=== PATIENT | female | born 1945 | race African-American/Black ===

== ENCOUNTER 2019-03-27 14:44 | Inpatient (IN) ==
[2019-03-27 16:15] LABS: Basophils % 0.4 %; Eosinophils # 0.3 K/mcL (0.0-0.6); Eosinophils % 3.9 %; Hematocrit 39.6 % (35.3-44.9); Hemoglobin 12.2 g/dL (11.5-15.4); Immature Granulocytes % 0.4 % (0-4); Lymphocytes # 1.9 K/mcL (0.6-4.6); Lymphocytes % 24.8 %; Mean Corpuscular HGB Conc 30.8 g/dL (31.6-35.5); Mean Corpuscular Hemoglobin 26.3 pg (28.0-33.3); Mean Corpuscular Volume 85.3 fL (83.0-100.0); Mean Platelet Volume 10.4 fL (9.4-12.4); Monocytes # 0.7 K/mcL (0.0-1.3); Monocytes % 9.5 %; Neutrophils # 4.6 K/mcL (1.6-8.9); Platelet Count 199 K/mcL (140-400); Red Blood Count 4.64 M/mcL (3.82-4.97); Red Cell Distribution Width 15.9 % (11.5-14.5)
--- NOTE | 2019-03-27 16:28 | Emergency Department Note ---
Disposition Clinical Impression: Cellulitis Qualifiers: Site of cellulitis: extremity Site of cellulitis of extremity: lower extremity Laterality: left Qualified Code(s): L03.116 - Cellulitis of left lower limb Disposition: Admitted As Inpatient Condition: Undetermined Time of Disposition: 22:28 General Adult HPI - General Chief complaint: ED Skin/Abscess/Foreign Body Stated complaint: cellulitis Time Seen by Provider: 03/27/19 16:16 Source: patient Limitations: no limitations - History of Present Illness Pain Scale: 6 - Related Data Home Medications Medication Instructions Recorded Confirmed Albuterol Sulfate [Albuterol 1 - 2 puff IH Q4-6H PRN 04/25/18 04/25/18 Inhaler] Atorvastatin [Lipitor] 40 mg PO DAILY 04/25/18 04/25/18 Furosemide [Lasix] 80 mg PO BID 04/25/18 04/25/18 Glimepiride [Amaryl] 1 mg PO HS 04/25/18 04/25/18 Glimepiride [Amaryl] 1.5 mg PO QAM 04/25/18 04/25/18 Isosorbide MONOnitrate (24 HR) 60 mg PO DAILY 04/25/18 04/25/18 [Imdur] Losartan Potassium [Cozaar] 100 mg PO DAILY 04/25/18 04/25/18 Metoprolol [Lopressor] 12.5 mg PO BID 04/25/18 04/25/18 Nitroglycerin [Nitrostat] 0.4 mg SL Q5M PRN 04/25/18 04/25/18 Allergies Allergy/AdvReac Type Severity Reaction Status Date / Time No Known Allergies Allergy Verified 04/25/18 09:00 Past Medical History - Past Medical History Medical history: Reports: CHF, diabetes, hyperlipidemia, hypertension, other Surgical history: Reports: other Psychiatric history: Reports: no psych history - Social History Smoking Status: Never smoker Smokeless Tobacco Status: No Alcohol use: Reports: none Drug use: Reports: none Physical Exam - General Limitations: no limitations General appearance: alert, in no apparent distress Course Vital Signs Temperature 98.2 F 03/27/19 14:49 Pulse Rate 62 03/27/19 14:49 Respiratory Rate 16 03/27/19 14:49 Blood Pressure 114/64 03/27/19 14:49 O2 Sat by Pulse Oximetry 94 03/27/19 14:49 Temperature 98.4 F 03/27/19 20:28 Pulse Rate 63 03/27/19 20:28 Respiratory Rate 15 03/27/19 20:28 Blood Pressure 127/70 03/27/19 20:28 O2 Sat by Pulse Oximetry 93 03/27/19 20:28 Oxygen Delivery Oxygen Delivery Room Air Medical Decision Making - Lab Data Result diagrams: 03/27/19 19:56 03/27/19 14:00 Lab Results 03/27/19 03/27/19 03/27/19 Range/Units 14:00 14:00 14:00 WBC 7.5 (4.3-11.1) K/mcL RBC 4.64 (3.82-4.97) M/mcL Hgb 12.2 (11.5-15.4) g/dL Hct 39.6 (35.3-44.9) % MCV 85.3 (83.0-100.0) fL MCH 26.3 L (28.0-33.3) pg MCHC 30.8 L (31.6-35.5) g/dL RDW 15.9 H (11.5-14.5) % Plt Count 199 (140-400) K/mcL MPV 10.4 (9.4-12.4) fL Immature Gran % 0.4 (0-4) % Seg Neutrophils % 61.0 % Lymphocytes % 24.8 % Monocytes % 9.5 % Eosinophils % 3.9 % Basophils % 0.4 % Neutrophils # 4.6 (1.6-8.9) K/mcL Lymphocytes # 1.9 (0.6-4.6) K/mcL Monocytes # 0.7 (0.0-1.3) K/mcL Eosinophils # 0.3 (0.0-0.6) K/mcL Basophils # 0.0 (0.0-0.2) K/mcL Sodium 142 (136-145) mEq/L Potassium 3.5 (3.5-5.1) mEq/L Chloride 105 (98-107) mEq/L Carbon Dioxide 29 (23-29) mEq/L BUN 22 (8-23) mg/dL Creatinine 1.00 (0.60-1.20) mg/dL Est GFR ( Amer) > 60 (> 60) Est GFR (Non-Af Amer) 54 L (> 60) BUN/Creatinine Ratio 22 (6-26) Glucose 104 (70-105) mg/dL Calculated Osmolality 298 (280-300) Lactic Acid 1.2 (0.5-2.2) mmol/L Calcium 8.7 (8.6-10.3) mg/dL Urine Color (Yellow) Urine Clarity (Clear) Urine pH (5.0-8.0) pH Units Ur Specific [place] (1.010-1.025) Urine Protein (Neg-Trace) mg/dL Urine Glucose (UA) (Normal) mg/dL Urine Ketones (Negative) mg/dL Urine Blood (Negative) Urine Nitrite (Negative) Urine Bilirubin (Negative) Urine Urobilinogen (Normal) mg/dL Ur Leukocyte Esterase (Negative) Urine Microscopic RBC (0-3) per hpf Urine Microscopic WBC (0-3) per hpf Ur Squamous Epith Cells (None-Few) per lpf Urine Bacteria (None-Few) per hpf Hyaline Casts (None-Few) per lpf 03/27/19 Range/Units 16:17 WBC (4.3-11.1) K/mcL RBC (3.82-4.97) M/mcL Hgb (11.5-15.4) g/dL Hct (35.3-44.9) % MCV (83.0-100.0) fL MCH (28.0-33.3) pg MCHC (31.6-35.5) g/dL RDW (11.5-14.5) % Plt Count (140-400) K/mcL MPV (9.4-12.4) fL Immature Gran % (0-4) % Seg Neutrophils % % Lymphocytes % % Monocytes % % Eosinophils % % Basophils % % Neutrophils # (1.6-8.9) K/mcL Lymphocytes # (0.6-4.6) K/mcL Monocytes # (0.0-1.3) K/mcL Eosinophils # (0.0-0.6) K/mcL Basophils # (0.0-0.2) K/mcL Sodium (136-145) mEq/L Potassium (3.5-5.1) mEq/L Chloride (98-107) mEq/L Carbon Dioxide (23-29) mEq/L BUN (8-23) mg/dL Creatinine (0.60-1.20) mg/dL Est GFR ( Amer) (> 60) Est GFR (Non-Af Amer) (> 60) BUN/Creatinine Ratio (6-26) Glucose (70-105) mg/dL Calculated Osmolality (280-300) Lactic Acid (0.5-2.2) mmol/L Calcium (8.6-10.3) mg/dL Urine Color Yellow (Yellow) Urine Clarity Clear (Clear) Urine pH 5.5 (5.0-8.0) pH Units Ur Specific [place] 1.018 (1.010-1.025) Urine Protein 100 H (Neg-Trace) mg/dL Urine Glucose (UA) Normal (Normal) mg/dL Urine Ketones Negative (Negative) mg/dL Urine Blood Negative (Negative) Urine Nitrite Negative (Negative) Urine Bilirubin Negative (Negative) Urine Urobilinogen Normal (Normal) mg/dL Ur Leukocyte Esterase Negative (Negative) Urine Microscopic RBC 0-3 (0-3) per hpf Urine Microscopic WBC 0-3 (0-3) per hpf Ur Squamous Epith Cells Few (None-Few) per lpf Urine Bacteria None Seen (None-Few) per hpf Hyaline Casts None Seen (None-Few) per lpf Attestation Statement - Attestation Attestation: I reviewed the residents documentation and agree with the residents assessment and plan of care. I have personally had face to face time with the patient. (Brief History, Brief Exam, and MDM) I personally supervised and was present for the whalen/critical portions of the following procedures completed by the resident: (add procedures performed here). [id number] time provided Patient arrives complaining of a breach of skin to her distal left lower extremity. This initially occurred as an abrasion several weeks ago but it is not healing. She has a known history of chronic lower extremity peripheral edema and diabetes. Patient does have symmetric swelling to her lower extremity bilaterally with superficial ulceration of her skin to the left lateral lower leg. She does not appear systemically ill or toxic
[2019-03-27] MEDS ORDERED: Clindamycin 600 MG/50 ML 600 MG/50 ML IV.SOLN IVPB ONE (16:37)
[2019-03-27 16:40] LABS: Bilirubin,Urine Negative (Negative); Blood,Urine Negative (Negative); Clarity,Urine Clear (Clear); Color,Urine Yellow (Yellow); Glucose,Urine (UA) Normal (Normal); Ketones,Urine Negative (Negative); Leukocyte Esterase,Urine Negative (Negative); Nitrite,Urine Negative (Negative); PH,Urine 5.5 pH Units (5.0-8.0); Protein,Urine 100 mg/dL (Neg-Trace); Specific Gravity,Urine 1.018 (1.010-1.025); Urobilinogen,Urine Normal (Normal)
[2019-03-27 16:41] LABS: BUN/Creatinine Ratio 22 (6-26); Blood Urea Nitrogen 22 mg/dL (8-23); Calcium 8.7 mg/dL (8.6-10.3); Carbon Dioxide 29 mEq/L (23-29); Chloride 105 mEq/L (98-107); Glucose 104 mg/dL (70-105); Osmolality,Calculated 298 (280-300); Potassium 3.5 mEq/L (3.5-5.1); Sodium 142 mEq/L (136-145); eGFR For Non-African Americans 54 (> 60)
[2019-03-27 16:42] LABS: Bacteria,Urine None Seen per hpf (None-Few); Hyaline Casts,Urine None Seen per lpf (None-Few); RBC,Urine 0-3 per hpf (0-3); Squamous Epithelial Cell,Urine Few per lpf (None-Few); WBC,Urine 0-3 per hpf (0-3)
--- NOTE | 2019-03-27 16:55 | Emergency Department Note ---
Disposition Clinical Impression: Cellulitis Qualifiers: Site of cellulitis: extremity Site of cellulitis of extremity: lower extremity Laterality: left Qualified Code(s): L03.116 - Cellulitis of left lower limb Disposition: Admitted As Inpatient Condition: Undetermined Referrals: Jeff Maloney DO [Primary Care Provider] - Forms: ED Satisfaction Letter Time of Disposition: 17:37 Skin/Abscess/FB HPI Chief complaint: ED Skin/Abscess/Foreign Body Stated complaint: cellulitis Time Seen by Provider: 03/27/19 16:16 Source: patient Mode of arrival: ambulatory Limitations: no limitations Nursing Notes Reviewed: Yes Vital Signs Reviewed: Yes HPI Narrative: 73-year-old female with history of diabetes, hypertension, COPD arrives to the emergency Department complaint of abrasion to left lower extremity that occurred roughly 4 weeks ago. The patient was treated with outpatient antibiotics, initially Bactrim and Keflex but has continued to experience symptoms so roughly 7 days ago the patient started ciprofloxacin is been taking medication as prescribed but states that she is continued to experience worsening erythema and swelling of the left lower extremity in the lateral aspect of the anterior aspect of the zayas. The patient was sent here by PCP instructed to be admitted for IV anabiotic's for failed outpatient therapy. Patient denies any fevers, chills or any other acute complaints at this time. She has soft compartments, no lymphangitis and no radiation proximally from the abrasion site. Good pulses and capillary refill less than 2 seconds. Home Medications Medication Instructions Recorded Confirmed Albuterol Sulfate [Albuterol 1 - 2 puff IH Q4-6H PRN 04/25/18 04/25/18 Inhaler] Atorvastatin [Lipitor] 40 mg PO DAILY 04/25/18 04/25/18 Furosemide [Lasix] 80 mg PO BID 04/25/18 04/25/18 Glimepiride [Amaryl] 1 mg PO HS 04/25/18 04/25/18 Glimepiride [Amaryl] 1.5 mg PO QAM 04/25/18 04/25/18 Isosorbide MONOnitrate (24 HR) 60 mg PO DAILY 04/25/18 04/25/18 [Imdur] Losartan Potassium [Cozaar] 100 mg PO DAILY 04/25/18 04/25/18 Metoprolol [Lopressor] 12.5 mg PO BID 04/25/18 04/25/18 Nitroglycerin [Nitrostat] 0.4 mg SL Q5M PRN 04/25/18 04/25/18 Allergies Allergy/AdvReac Type Severity Reaction Status Date / Time No Known Allergies Allergy Verified 04/25/18 09:00 All systems ED: reviewed and negative except as stated. Constitutional: Reports: weakness. Denies: fever, chills ENT ED: Denies: dysphagia Cardiovascular: Denies: chest pain Respiratory: Denies: dyspnea Gastrointestinal: Denies: abdominal pain, nausea, vomiting Genitourinary: Denies: urgency, dysuria Musculoskeletal: Denies: back pain Integumentary: Reports: abrasion, lesions Past Medical History - Past Medical History Attestation: Yes The following information was validated with the patient. Source: old records reviewed Medical history: Reports: CHF, diabetes, hyperlipidemia, hypertension, other Surgical history: Reports: other Psychiatric history: Reports: no psych history - Social History Smoking Status: Never smoker Smokeless Tobacco Status: No Alcohol use: Reports: none Drug use: Reports: none Physical Exam - General Limitations: no limitations General appearance: alert, in no apparent distress - Head Head exam: atraumatic, normocephalic, normal inspection - Eye Eye exam: Present: normal appearance - ENT ENT exam: normal exam, normal oropharynx, mucous membranes moist - Neck Neck exam: Present: normal inspection, full ROM, trachea midline - Chest Chest inspection: Present: normal inspection, symmetric chest wall rise - Respiratory Respiratory exam: Present: normal lung sounds bilaterally - Cardiovascular Cardiovascular exam: Present: regular rate, normal rhythm, normal heart sounds - Abdominal Exam Abdominal exam: Present: soft, Non-Tender. Absent: tenderness, distention, gua rding, rebound, rigidity - Extremities Exam Extremities exam: Present: full ROM, tenderness (Left lateral aspect of the anterior zayas.), normal capillary refill, pedal edema (Baseline nonpitting bilateral lower extremities.), other (The patient has a 2 cm diameter abrasion to the left lateral aspect of the zayas. Running erythema and tenderness noted. It is hot to the touch. No definable or drainable abscess noted.) Course Vital Signs Temperature 98.2 F 03/27/19 14:49 Pulse Rate 62 03/27/19 14:49 Respiratory Rate 16 03/27/19 14:49 Blood Pressure 114/64 03/27/19 14:49 O2 Sat by Pulse Oximetry 94 03/27/19 14:49 Temperature 98.2 F 03/27/19 14:49 Pulse Rate 62 03/27/19 14:49 Respiratory Rate 16 03/27/19 14:49 Blood Pressure 114/64 03/27/19 14:49 O2 Sat by Pulse Oximetry 94 03/27/19 14:49 Oxygen Delivery Oxygen Delivery Room Air Skin/Abscess/Foreign Body - MDM Narrative Medical decision making narrative: Patient's evaluation demonstrates findings of cellulitis. Lab work here is f airly unremarkable. We will consider this failed outpatient therapy and so the patient IV Clinda Mysoline admit the patient to hospital time. Accepted by . D - Lab Data Lab results reviewed: Yes I reviewed the patient's lab results. Result diagrams: 03/27/19 14:00 03/27/19 14:00 Lab Results 03/27/19 03/27/19 03/27/19 Range/Units 14:00 14:00 14:00 WBC 7.5 (4.3-11.1) K/mcL RBC 4.64 (3.82-4.97) M/mcL Hgb 12.2 (11.5-15.4) g/dL Hct 39.6 (35.3-44.9) % MCV 85.3 (83.0-100.0) fL MCH 26.3 L (28.0-33.3) pg MCHC 30.8 L (31.6-35.5) g/dL RDW 15.9 H (11.5-14.5) % Plt Count 199 (140-400) K/mcL MPV 10.4 (9.4-12.4) fL Immature Gran % 0.4 (0-4) % Seg Neutrophils % 61.0 % Lymphocytes % 24.8 % Monocytes % 9.5 % Eosinophils % 3.9 % Basophils % 0.4 % Neutrophils # 4.6 (1.6-8.9) K/mcL Lymphocytes # 1.9 (0.6-4.6) K/mcL Monocytes # 0.7 (0.0-1.3) K/mcL Eosinophils # 0.3 (0.0-0.6) K/mcL Basophils # 0.0 (0.0-0.2) K/mcL Sodium 142 (136-145) mEq/L Potassium 3.5 (3.5-5.1) mEq/L Chloride 105 (98-107) mEq/L Carbon Dioxide 29 (23-29) mEq/L BUN 22 (8-23) mg/dL Creatinine 1.00 (0.60-1.20) mg/dL Est GFR ( Amer) > 60 (> 60) Est GFR (Non-Af Amer) 54 L (> 60) BUN/Creatinine Ratio 22 (6-26) Glucose 104 (70-105) mg/dL Calculated Osmolality 298 (280-300) Lactic Acid 1.2 (0.5-2.2) mmol/L Calcium 8.7 (8.6-10.3) mg/dL Urine Color (Yellow) Urine Clarity (Clear) Urine pH (5.0-8.0) pH Units Ur Specific [place] (1.010-1.025) Urine Protein (Neg-Trace) mg/dL Urine Glucose (UA) (Normal) mg/dL Urine Ketones (Negative) mg/dL Urine Blood (Negative) Urine Nitrite (Negative) Urine Bilirubin (Negative) Urine Urobilinogen (Normal) mg/dL Ur Leukocyte Esterase (Negative) Urine Microscopic RBC (0-3) per hpf Urine Microscopic WBC (0-3) per hpf Ur Squamous Epith Cells (None-Few) per lpf Urine Bacteria (None-Few) per hpf Hyaline Casts (None-Few) per lpf 03/27/19 Range/Units 16:17 WBC (4.3-11.1) K/mcL RBC (3.82-4.97) M/mcL Hgb (11.5-15.4) g/dL Hct (35.3-44.9) % MCV (83.0-100.0) fL MCH (28.0-33.3) pg MCHC (31.6-35.5) g/dL RDW (11.5-14.5) % Plt Count (140-400) K/mcL MPV (9.4-12.4) fL Immature Gran % (0-4) % Seg Neutrophils % % Lymphocytes % % Monocytes % % Eosinophils % % Basophils % % Neutrophils # (1.6-8.9) K/mcL Lymphocytes # (0.6-4.6) K/mcL Monocytes # (0.0-1.3) K/mcL Eosinophils # (0.0-0.6) K/mcL Basophils # (0.0-0.2) K/mcL Sodium (136-145) mEq/L Potassium (3.5-5.1) mEq/L Chloride (98-107) mEq/L Carbon Dioxide (23-29) mEq/L BUN (8-23) mg/dL Creatinine (0.60-1.20) mg/dL Est GFR ( Amer) (> 60) Est GFR (Non-Af Amer) (> 60) BUN/Creatinine Ratio (6-26) Glucose (70-105) mg/dL Calculated Osmolality (280-300) Lactic Acid (0.5-2.2) mmol/L Calcium (8.6-10.3) mg/dL Urine Color Yellow (Yellow) Urine Clarity Clear (Clear) Urine pH 5.5 (5.0-8.0) pH Units Ur Specific [place] 1.018 (1.010-1.025) Urine Protein 100 H (Neg-Trace) mg/dL Urine Glucose (UA) Normal (Normal) mg/dL Urine Ketones Negative (Negative) mg/dL Urine Blood Negative (Negative) Urine Nitrite Negative (Negative) Urine Bilirubin Negative (Negative) Urine Urobilinogen Normal (Normal) mg/dL Ur Leukocyte Esterase Negative (Negative) Urine Microscopic RBC 0-3 (0-3) per hpf Urine Microscopic WBC 0-3 (0-3) per hpf Ur Squamous Epith Cells Few (None-Few) per lpf Urine Bacteria None Seen (None-Few) per hpf Hyaline Casts None Seen (None-Few) per lpf
[2019-03-27] MEDS ORDERED: *HR* Dextrose 50 % in Water (Syg) 50 ML SYRINGE IVP PRN ×2 (17:25→19:38)
[2019-03-27] MEDS ORDERED: Insulin Human Regular 100 UNIT in 0.9 % Sodium Chloride 100 ML IVC SCH (17:30)
--- NOTE | 2019-03-27 17:58 | Internal Med History&Physical ---
Date of Encounter: 03/27/19 Time of Encounter: 18:00 Internal Medicine - H&P: HPI Chief complaint: Cellulitis History of present illness: 73-year-old female with history of diabetes, hypertension, COPD who presented to the ER with arrives to the emergency abrasion to left lower extremity that occurred roughly 4 weeks ago. The patient was treated with Bactrim and Keflex as outpatient with no improvement. Her ABs regimen was changed to ciprofloxacin with no improvement. She denies any fevers, chills.X ray revealed no fracture, malalignment or osseous destruction. Advanced degenerative changes are present within the knee joint. There is moderate to severe diffuse soft tissue edema. She was admitted for further evaluation . Past Med Surg Social Fam HX - Past Medical History Medical history: CHF, diabetes, hyperlipidemia, hypertension, other Additional medical history: H/O COLON POLYPS. ACHILLES TENDON RUPTURE. PROTENURIA. OA. FIBROIDS. NEPHROTIC SYNDROME. SYNCOPE. 02/2014 [facility] - APICAL DEFECT. 02/2014 [facility] - NML, EF W/MILD MOD CAD (40% PROX LAD). CARDIOVASCULAR DISEASE. CAD. RHEUMATOID ARTHRITIS. ELEVATED D-DIMER. PULMON NAMRATA HTN. HYPOXIA. PROTENURIA. SHINGLES. OA. ELEVATED CPK. ATROPHIC GASTRITIS W/OUT MENTION OF HEMORRHAGE. 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 06/2010 [facility]OSS DENG. 02/2009 [facility]. S[facility], DR FRIAS. DIVERTICULOSIS/COLON - TUBLA ADENO MAL AND HYPERPLASTIC RECTAL POLYPS 04/14/15. 04/25/18 COLONOSCOPY @[facility] W/DR FRIAS - Social History Smoking Status: Never smoker Smokeless Tobacco Status: No Alcohol use: none Drug use: none Internal Medicine - H&P: Meds Albuterol Sulfate [Albuterol Inhaler] 1 - 2 puff IH Q4-6H PRN 04/25/18 [History] Atorvastatin [Lipitor] 40 mg PO DAILY 04/25/18 [History] Furosemide [Lasix] 80 mg PO QPM 04/25/18 [History] Glimepiride [Amaryl] 1.5 mg PO HS 04/25/18 [History] Glimepiride [Amaryl] 1.5 mg PO QAM 04/25/18 [History] Isosorbide MONOnitrate (24 HR) [Imdur] 60 mg PO DAILY 04/25/18 [History] Losartan Potassium [Cozaar] 100 mg PO DAILY 04/25/18 [History] Nitroglycerin [Nitrostat] 0.4 mg SL Q5M PRN 04/25/18 [History] Aspirin 81 mg PO DAILY 03/28/19 [History] Ciprofloxacin HCl [Cipro] 500 mg PO BID 03/28/19 [History] Furosemide [Lasix] 120 mg PO QAM 03/28/19 [History] Lactobacillus Acidophilus [Acidophilus] 1 cap PO BID 03/28/19 [History] Mupirocin [Bactroban Oint] 1 appl TP TID 03/28/19 [History] Vitamin D 2,000 unit PO DAILY 03/28/19 [History] Allergy/AdvReac Type Severity Reaction Status Date / Time No Known Allergies Allergy Verified 04/25/18 09:00 All Systems PM: A 10-system review of systems was performed and is negative for pertinent findings except as documented above in the HPI. - Constitutional Constitutional: no chills, no fever(s), no night sweats - EENT Eyes: no change in vision, no discharge, no pain, no photophobia Ears: no ear discharge, no ear pain, no tinnitus Nose, mouth and throat: no dysphagia, no nasal discharge, no neck pain, no sore throat - Cardiovascular Cardiovascular ROS IM: no chest pain, no diaphoresis, no dyspnea, no lightheadedness, no palpitations, no syncope - Respiratory Respiratory: no cough, no dyspnea, no wheezing, no excessive phlegm production - Gastrointestinal Gastrointestinal: no abdominal pain, no diarrhea, no hematemesis, no hematochezia, no melena, no nausea, no vomiting - Genitourinary Genitourinary: no change in urinary stream, no dysuria, no flank pain, no hematuria - Musculoskeletal Musculoskeletal ROS IM: no numbness, no tingling - Integumentary Integumentary IM: erythema, non-healing lesions, no unusual bruising - Neurological Neurological ROS: no confusion, no convulsions, no focal weakness, no numbness, no tingling, no tremor(s) - Hematologic/Lymphatic Hematologic/Lymphatic: no easy bruising - Constitutional Vitals: Temp Pulse Resp BP Pulse Ox 98.2 F 61 16 98/57 98 03/27/19 14:49 03/27/19 17:47 03/27/19 17:47 03/27/19 17:47 03/27/19 17:47 Exam: as below - Head Head exam: Present: atraumatic, normocephalic - Eye Eye exam: Present: PERRL, conjuntiva pink, sclera anicteric Pupils: Present: PERRL - Neck Neck exam general surgery: Present: supple, trachea midline. Absent: lymphadenopathy - Respiratory Respiratory exam: Present: CTAB. Absent: accessory muscle use, rales, rhonchi, wheezes - Cardiovascular Cardiovascular exam: Present: RRR, +S1, +S2. Absent: diastolic murmur, gallop, rubs, systolic murmur - GI/Abdominal GI/Abdominal exam: Present: normal bowel sounds, soft, no peritoneal signs. Absent: distended, tenderness - Extremities Exam Extremities exam: Present: normal capillary refill, warm, radial pulses palpable and symmetrical. Absent: calf tenderness, cyanotic, pedal edema - Neurological Exam Neurological exam: Present: CN II-XII intact, oriented X3, no focal deficits. Absent: pronater drift, facial droop, speech deficit - Skin Skin exam: Present: abrasion, dry, erythema Internal Med - H&P Results - Labs CBC & Chem 7: 03/29/19 02:26 03/29/19 02:26 Labs: Short CBC 03/27/19 Range/Units 14:00 WBC 7.5 (4.3-11.1) K/mcL Hgb 12.2 (11.5-15.4) g/dL Hct 39.6 (35.3-44.9) % Plt Count 199 (140-400) K/mcL Neutrophils # 4.6 (1.6-8.9) K/mcL BMP 03/27/19 14:00 Sodium 142 Potassium 3.5 Chloride 105 Carbon Dioxide 29 BUN 22 Creatinine 1.00 Glucose 104 Calcium 8.7 Urine 03/27/19 Range/Units 16:17 Urine Color Yellow (Yellow) Urine Clarity Clear (Clear) Urine pH 5.5 (5.0-8.0) pH Units Ur Specific [place] 1.018 (1.010-1.025) Urine Protein 100 H (Neg-Trace) mg/dL Urine Glucose (UA) Normal (Normal) mg/dL - Impressions ITS Impressions Tibia/Fibula X-Ray 03/27/19 17:10 IMPRESSION: No acute osseous abnormality. D/ / Félix Chua MD / Félix Chua MD Interpreting Provider: Félix Chua MD - Assessment and Plan (1) Cellulitis Current Visit: Yes Status: Acute Assessment and plan: We will start IV ABs was vancomycin and Zosyn Qualifiers: Site of cellulitis: extremity Site of cellulitis of extremity: lower extremity Laterality: left Qualified Code(s): L03.116 - Cellulitis of left lower limb (2) Hypertension Current Visit: No Status: Chronic Assessment and plan: We will continue home meds, and adjust home meds when indicated. Qualifiers: Hypertension type: essential hypertension Qualified Code(s): I10 - Essential (primary) hypertension (3) Diabetes Current Visit: Yes Status: Chronic Assessment and plan: We will start the patient on insulin sliding scale with moderate coverage. Qualifiers: Diabetes mellitus type: type 2 Diabetes mellitus fdc insulin use: without fdc use Diabetes mellitus complication status: with unspecified complications Qualified Code(s): E11.8 - Type 2 diabetes mellitus with unspecified complications (4) COPD (chronic obstructive pulmonary disease) Current Visit: No Status: Chronic Assessment and plan: We will cont. home inhaler and start PRN DUNEB. Qualifiers: COPD type: unspecified COPD Qualified Code(s): J44.9 - Chronic obstructive pulmonary disease, unspecified (5) DVT prophylaxis Current Visit: Yes Status: Acute Assessment and plan: Heparin 5000 BID - Time Spent With Patient Total time spent is greater than 50% in coordination of care (as documented) at patient's floor/unit and/or counseling patient:
[2019-03-27] MEDS ORDERED: Piperacillin/Tazobactam 3.375 GM in Water for inj. (sterile) 20 ML 20 ML IVP ONE (18:06)
[2019-03-27] MEDS ORDERED: Piperacillin/Tazobactam 3.375 GM in 0.9 % Sodium Chloride Mini Bag 100 ML IVPB ONE (18:28)
[2019-03-27] MEDS: 0.9 % Sodium Chloride 1,000 ML IVC SCH (18:28)
[2019-03-27] MEDS ORDERED: Acetaminophen 325 MG TABLET PO PRN (19:34)
[2019-03-27] MEDS ORDERED: Naloxone 0.4 MG/ML INJ IVP PRN (19:34)
[2019-03-27] MEDS ORDERED: *HR* HYDROcodone/Acet 5/325 mg TABLET PO PRN (19:34)
[2019-03-27] MEDS ORDERED: D5% in Water 1,000 ML IVC PRN (19:38)
[2019-03-27] MEDS ORDERED: Dextrose Gel 15 GM/37.5 ML TUBE PO PRN ×2 (19:38)
[2019-03-27] MEDS ORDERED: Ipratropium/Albuterol Neb 3 ML IH PRN (19:39)
[2019-03-27 20:23] LABS: Basophils % 0.2 %; Eosinophils # 0.3 K/mcL (0.0-0.6); Eosinophils % 3.4 %; Hematocrit 38.7 % (35.3-44.9); Hemoglobin 11.8 g/dL (11.5-15.4); Immature Granulocytes % 0.4 % (0-4); Lymphocytes # 2.7 K/mcL (0.6-4.6); Lymphocytes % 32.8 %; Mean Corpuscular HGB Conc 30.5 g/dL (31.6-35.5); Mean Corpuscular Hemoglobin 26.2 pg (28.0-33.3); Mean Corpuscular Volume 85.8 fL (83.0-100.0); Mean Platelet Volume 10.3 fL (9.4-12.4); Monocytes # 0.8 K/mcL (0.0-1.3); Monocytes % 9.2 %; Neutrophils # 4.4 K/mcL (1.6-8.9); Platelet Count 179 K/mcL (140-400); Red Blood Count 4.51 M/mcL (3.82-4.97); Red Cell Distribution Width 15.9 % (11.5-14.5)
[2019-03-27 20:30] LABS: Estimated Average Glucose 169 mg/dl; Hemoglobin A1C 7.5 %
[2019-03-27] MEDS ORDERED: Insulin LISPRO 300 UNITS/3 ML VIAL SQ SCH (21:00)
[2019-03-28] MEDS: Insulin LISPRO 300 UNITS/3 ML VIAL SQ SCH ×4 (00:09→20:48)
[2019-03-28] MEDS ORDERED: Nitroglycerin 0.4 MG TAB.SUBL SL PRN (02:42)
[2019-03-28 03:29] LABS: INR 1.1; Prothrombin Time 12.6 Seconds (9.4-12.1)
[2019-03-28 03:32] LABS: Activated Partial Thrombo Time 32.4 Seconds (26.0-36.0)
[2019-03-28 03:41] LABS: Alanine Aminotransferase 10 Units/L (7-52); Albumin 3.3 g/dL (3.5-5.7); Albumin/Globulin Ratio 1.3 (1.1-2.2); Alkaline Phosphatase 60 Units/L (34-104); Aspartate Amino Transferase 16 Units/L (13-39); BUN/Creatinine Ratio 21 (6-26); Bilirubin,Total 0.4 mg/dL (0.3-1.0); Blood Urea Nitrogen 18 mg/dL (8-23); Calcium 8.6 mg/dL (8.6-10.3); Carbon Dioxide 29 mEq/L (23-29); Chloride 109 mEq/L (98-107); Chol/HDL Ratio 2.7 (0-4.9); Cholesterol 106 mg/dL (< 200); Globulin 2.6 g/dL (2.4-3.5); Glucose 161 mg/dL (70-105); HDL Cholesterol 40 mg/dL (40-59); LDL Cholesterol,Calculated 54 mg/dL (0-99); Magnesium 2.2 mg/dL (1.6-2.6); Osmolality,Calculated 301 (280-300); Phosphorous 2.9 mg/dL (2.7-4.5); Potassium 3.1 mEq/L (3.5-5.1); Sodium 143 mEq/L (136-145); Total Protein 5.9 g/dL (6.4-8.9); Triglycerides 58 mg/dL (< 150); eGFR For Non-African Americans > 60 (> 60)
[2019-03-28] MEDS ORDERED: Vancomycin (wt based) 1,000 MG VIAL IVPB SCH (04:00)
[2019-03-28] MEDS: *HR* Heparin 5,000 UNIT/ML VIAL SQ SCH ×2 (05:11→17:28)
[2019-03-28] MEDS: 0.9 % Sodium Chloride 1,000 ML IVC SCH ×2 (05:11→07:44)
[2019-03-28] MEDS ORDERED: *HR* Glimepiride 2 MG TABLET PO SCH ×2 (07:30→18:00)
[2019-03-28] MEDS: Piperacillin/Tazobactam 3.375 GM in 0.9 % Sodium Chloride Mini Bag 100 ML IVPB SCH ×2 (09:02→15:22)
[2019-03-28] MEDS: Isosorbide MONOnitrate (24 HR) 60 MG TAB.ER.24H PO SCH (09:02)
[2019-03-28] MEDS: Furosemide 40 MG TABLET PO SCH ×2 (09:02→17:28)
[2019-03-28] MEDS: Aspirin 81 MG TAB.CHEW PO SCH (09:02)
[2019-03-28] MEDS: Cholecalciferol (D-3) 1,000 UNIT TABLET PO SCH (09:02)
--- NOTE | 2019-03-28 12:16 | Internal Med Progress Note ---
Hospitalist Progress Note - Encounter Date of Encounter: 03/28/19 Time of Encounter: 10:00 - Subjective Interval History: H&P reviewed. Patient with history of diabetes and morbid obesity was admitted for left leg cellulitis after failing outpatient therapy with Bactrim/Keflex/Cipro. Pt continues to complain of pain mainly along the left lower anterior zayas. No fever/chills or N/V. - Exam Vitals: Temp Pulse Resp BP Pulse Ox 97.9 F 60 16 131/76 95 03/28/19 07:18 03/28/19 07:18 03/28/19 07:18 03/28/19 07:18 03/28/19 07:18 Exam: General: Alert and oriented, not in acute distress. Obese female Cardiovascular:Normal S1 & S2, No JVD. Pulse regular. Lungs: clear to auscultation, no wheezes/rales Abdomen:Soft, non-tender, no rigidity. Extremities: redness and tenderness around the wound on L lower zayas anteriorly. No obvious fluctuance, no discharge appreciated. Neurological:Normal cognition and motor skills. Non-focal - Assessment and Plan (1) Cellulitis Current Visit: Yes Status: Acute Assessment and Plan: Failed outpatient therapy on multiple antibiotics Continue IV vancomycin and Zosyn Given the lack of significant improvement on IV antibiotics, will obtain doppler to rule out DVT will consider further imaging tomorrow depending on her clinical course (2) Hypertension Current Visit: No Status: Chronic Assessment and Plan: Resume home meds (3) Diabetes Current Visit: Yes Status: Chronic Assessment and Plan: On glimepiride at home, hold Low-dose sliding scale (4) COPD (chronic obstructive pulmonary disease) Current Visit: No Status: Chronic Assessment and Plan: not in exacerbation resume home inhalers (5) DVT prophylaxis Current Visit: Yes Status: Acute Assessment and Plan: SQ heparin - Time Spent with Patient Total time spent is greater than 50% in coordination of care (as documented) at patient's floor/unit and/or counseling patient: 25 - 35 minutes Plan of Care Discussed with: patient (discussed with RN) Internal Medicine: Result - Labs CBC & Chem 7: 03/27/19 19:56 03/28/19 02:02 Labs: Short CBC 03/27/19 03/27/19 Range/Units 14:00 19:56 WBC 7.5 8.2 (4.3-11.1) K/mcL Hgb 12.2 11.8 (11.5-15.4) g/dL Hct 39.6 38.7 (35.3-44.9) % Plt Count 199 179 (140-400) K/mcL Neutrophils # 4.6 4.4 (1.6-8.9) K/mcL BMP 03/27/19 03/28/19 14:00 02:02 Sodium 142 143 Potassium 3.5 3.1 L Chloride 105 109 H Carbon Dioxide 29 29 BUN 22 18 Creatinine 1.00 0.85 Glucose 104 161 H Calcium 8.7 8.6 Liver Function 03/28/19 Range/Units 02:02 Total Bilirubin 0.4 (0.3-1.0) mg/dL AST 16 (13-39) Units/L ALT 10 (7-52) Units/L Alkaline Phosphatase 60 (34-104) Units/L Albumin 3.3 L (3.5-5.7) g/dL Urine 03/27/19 Range/Units 16:17 Urine Color Yellow (Yellow) Urine Clarity Clear (Clear) Urine pH 5.5 (5.0-8.0) pH Units Ur Specific [place] 1.018 (1.010-1.025) Urine Protein 100 H (Neg-Trace) mg/dL Urine Glucose (UA) Normal (Normal) mg/dL - ABG Interpretation ABG results: PT/INR, D-dimer PT 12.6 Seconds (9.4-12.1) H 03/28/19 02:02 - Impressions Impressions Tibia/Fibula X-Ray 03/27/19 17:10 IMPRESSION: No acute osseous abnormality. D/ / Félix Chua MD / Félix Chua MD Interpreting Provider: Félix Chua MD Consult Discharge Plan - Plan Referrals: Jeff Maloney, [Primary Care Provider] - (1) Cellulitis Qualifiers: Site of cellulitis: extremity Site of cellulitis of extremity: lower ex tremity Laterality: left Qualified Code(s): L03.116 - Cellulitis of left lower limb (2) Hypertension Qualifiers: Hypertension type: essential hypertension Qualified Code(s): I10 - Essential (primary) hypertension (3) Diabetes Qualifiers: Diabetes mellitus type: type 2 Diabetes mellitus terminal worker insulin use: without terminal worker use Diabetes mellitus complication status: with unspecified complications Qualified Code(s): E11.8 - Type 2 diabetes mellitus with unspecified complications (4) COPD (chronic obstructive pulmonary disease) Qualifiers: COPD type: unspecified COPD Qualified Code(s): J44.9 - Chronic obstructive pulmonary disease, unspecified
[2019-03-28] MEDS: Potassium Chloride Elixir 20 MEQ/15 ML UDC PO SCH ×2 (15:21→20:33)
[2019-03-28] MEDS ORDERED: *HR* Heparin 5,000 UNIT/ML VIAL IVP ONE (17:40)
[2019-03-28] MEDS ORDERED: *HR* Heparin 5,000 UNIT/ML VIAL IVP PRN ×2 (17:40)
[2019-03-28 18:46] LABS: Prothrombin Time 11.3 Seconds (9.4-12.1)
[2019-03-28] MEDS: Heparin 25,000 UNIT/250 ML D5W 25,000 UNIT/250 ML IV.SOLN IVC SCH (20:33)
[2019-03-29] MEDS: Piperacillin/Tazobactam 3.375 GM in 0.9 % Sodium Chloride Mini Bag 100 ML IVPB SCH ×4 (00:16→22:58)
[2019-03-29 02:59] LABS: Basophils % 0.4 %; Eosinophils # 0.6 K/mcL (0.0-0.6); Eosinophils % 7.4 %; Hematocrit 39.4 % (35.3-44.9); Immature Granulocytes % 0.5 % (0-4); Lymphocytes # 2.4 K/mcL (0.6-4.6); Lymphocytes % 29.3 %; Mean Corpuscular HGB Conc 30.5 g/dL (31.6-35.5); Mean Corpuscular Hemoglobin 25.7 pg (28.0-33.3); Mean Corpuscular Volume 84.4 fL (83.0-100.0); Mean Platelet Volume 10.1 fL (9.4-12.4); Monocytes # 0.7 K/mcL (0.0-1.3); Monocytes % 8.9 %; Neutrophils # 4.3 K/mcL (1.6-8.9); Platelet Count 186 K/mcL (140-400); Red Blood Count 4.67 M/mcL (3.82-4.97); Red Cell Distribution Width 15.9 % (11.5-14.5); Segmented Neutrophils % 53.5 %
[2019-03-29 03:56] LABS: BUN/Creatinine Ratio 15 (6-26); Blood Urea Nitrogen 14 mg/dL (8-23); Calcium 9.1 mg/dL (8.6-10.3); Carbon Dioxide 28 mEq/L (23-29); Chloride 106 mEq/L (98-107); Glucose 109 mg/dL (70-105); Magnesium 2.1 mg/dL (1.6-2.6); Osmolality,Calculated 297 (280-300); Potassium 3.9 mEq/L (3.5-5.1); Sodium 143 mEq/L (136-145); eGFR For Non-African Americans 57 (> 60)
[2019-03-29] MEDS: Insulin LISPRO 300 UNITS/3 ML VIAL SQ SCH ×4 (07:21→21:13)
[2019-03-29] MEDS: Furosemide 40 MG TABLET PO SCH ×2 (10:57→17:30)
[2019-03-29] MEDS: Isosorbide MONOnitrate (24 HR) 60 MG TAB.ER.24H PO SCH (10:59)
[2019-03-29] MEDS: Aspirin 81 MG TAB.CHEW PO SCH (10:59)
[2019-03-29] MEDS: Cholecalciferol (D-3) 1,000 UNIT TABLET PO SCH (10:59)
[2019-03-29] MEDS: Apixaban 5 MG TABLET PO SCH ×2 (12:03→21:13)
[2019-03-29] MEDS: Heparin 25,000 UNIT/250 ML D5W 25,000 UNIT/250 ML IV.SOLN IVC SCH (12:04)
--- NOTE | 2019-03-29 12:13 | Internal Med Progress Note ---
Hospitalist Progress Note - Encounter Date of Encounter: 03/29/19 Time of Encounter: 09:30 - Subjective Interval History: Pt was started on heparin drip after preliminary Doppler study came back positive for acute DVT in mid and distal SFV. Improvement with left leg swelling and redness noted. Pt continues to be quite tender on palpation however. No fev er overnight. - Exam Vitals: Temp Pulse Resp BP Pulse Ox 98 F 62 15 123/68 95 03/29/19 11:31 03/29/19 11:31 03/29/19 11:31 03/29/19 11:31 03/29/19 11:31 Exam: General: Alert and oriented, not in acute distress. Obese female Cardiovascular:Normal S1 & S2, No JVD. Pulse regular. Lungs: clear to auscultation, no wheezes/rales Abdomen:Soft, non-tender, no rigidity. Extremities: redness and tenderness around the wound on L lower zayas anteriorly, improving from yesterday. No obvious fluctuance, no discharge appreciated. Neurological:Normal cognition and motor skills. Non-focal - Assessment and Plan (1) Cellulitis Current Visit: Yes Status: Acute Assessment and Plan: Failed outpatient therapy on multiple antibiotics Continue IV vancomycin and Zosyn doppler study showed acute DVT in L mid-distal SFV, started on hep gtt will monitor her course today and decide on further imaging studies thereafter (2) DVT (deep venous thrombosis) Current Visit: Yes Status: Acute Assessment and Plan: started on hep gtt discussed with pharmacy, will barillas check DOACs and transition to PO agents today (3) Hypertension Current Visit: No Status: Chronic Assessment and Plan: Resume home meds (4) Diabetes Current Visit: Yes Status: Chronic Assessment and Plan: On glimepiride at home, hold Low-dose sliding scale (5) COPD (chronic obstructive pulmonary disease) Current Visit: No Status: Chronic Assessment and Plan: not in exacerbation resume home inhalers (6) Heart failure Current Visit: Yes Status: Chronic Assessment and Plan: not in decompensation Resume home dose of Lasix (7) Morbid obesity with BMI of 45.0-49.9, adult Current Visit: Yes Status: Chronic Assessment and Plan: BMI 49.4. Lifestyle modifications emphasized - Time Spent with Patient Total time spent is greater than 50% in coordination of care (as documented) at patient's floor/unit and/or counseling patient: 25 - 35 minutes Plan of Care Discussed with: patient (discussed with RN) Internal Medicine: Result - Labs CBC & Chem 7: 03/29/19 02:26 03/29/19 02:26 Labs: Short CBC 03/29/19 Range/Units 02:26 WBC 8.1 (4.3-11.1) K/mcL Hgb 12.0 (11.5-15.4) g/dL Hct 39.4 (35.3-44.9) % Plt Count 186 (140-400) K/mcL Neutrophils # 4.3 (1.6-8.9) K/mcL BMP 03/29/19 02:26 Sodium 143 Potassium 3.9 Chloride 106 Carbon Dioxide 28 BUN 14 Creatinine 0.96 Glucose 109 H Calcium 9.1 - ABG Interpretation ABG results: PT/INR, D-dimer PT 11.3 Seconds (9.4-12.1) 03/28/19 18:00 Consult Discharge Plan - Plan Referrals: Jeff Maloney DO [Primary Care Provider] - ____ (1) Cellulitis Qualifiers: Site of cellulitis: extremity Site of cellulitis of extremity: lower extremity Laterality: left Qualified Code(s): L03.116 - Cellulitis of left lower limb (2) DVT (deep venous thrombosis) Qualifiers: DVT location: lower extremity Affected thrombotic vein of extremity: other lower extremity vein Chronicity: acute Laterality: left Qualified Code(s): I82.492 - Acute embolism and thrombosis of other specified deep vein of left lower extremity (3) Hypertension Qualifiers: Hypertension type: essential hypertension Qualified Code(s): I10 - Essential (primary) hypertension (4) Diabetes Qualifiers: Diabetes mellitus type: type 2 Diabetes mellitus intermediate insulin use: without drop forger use Diabetes mellitus complication status: with unspecified complications Qualified Code(s): E11.8 - Type 2 diabetes mellitus with unspecified complications (5) COPD (chronic obstructive pulmonary disease) Qualifiers: COPD type: unspecified COPD Qualified Code(s): J44.9 - Chronic obstructive pulmonary disease, unspecified (6) Heart failure Qualifiers: Heart failure type: unspecified Heart failure chronicity: chronic Qualified Code(s): I50.9 - Heart failure, unspecified
[2019-03-30 06:47] LABS: Hematocrit 38.7 % (35.3-44.9); Hemoglobin 11.8 g/dL (11.5-15.4)
[2019-03-30 07:05] LABS: BUN/Creatinine Ratio 12 (6-26); Blood Urea Nitrogen 12 mg/dL (8-23); Calcium 9.1 mg/dL (8.6-10.3); Carbon Dioxide 29 mEq/L (23-29); Chloride 104 mEq/L (98-107); Glucose 125 mg/dL (70-105); Osmolality,Calculated 293 (280-300); Potassium 3.7 mEq/L (3.5-5.1); Sodium 141 mEq/L (136-145); eGFR For Non-African Americans 54 (> 60)
[2019-03-30] MEDS: Insulin LISPRO 300 UNITS/3 ML VIAL SQ SCH ×2 (08:06→11:59)
[2019-03-30] MEDS: Furosemide 40 MG TABLET PO SCH (08:48)
[2019-03-30] MEDS: Piperacillin/Tazobactam 3.375 GM in 0.9 % Sodium Chloride Mini Bag 100 ML IVPB SCH (08:48)
[2019-03-30] MEDS: Cholecalciferol (D-3) 1,000 UNIT TABLET PO SCH (10:39)
[2019-03-30] MEDS: Isosorbide MONOnitrate (24 HR) 60 MG TAB.ER.24H PO SCH (10:39)
[2019-03-30] MEDS: Aspirin 81 MG TAB.CHEW PO SCH (10:39)
[2019-03-30] MEDS: Apixaban 5 MG TABLET PO SCH (10:40)
--- NOTE | 2019-03-30 10:47 | Discharge Summary ---
- NOTES TO OUTPATIENT PROVIDER Notes to Outpatient Provider: Started on Eliquis for left leg DVT. Follow up with PCP. Also to complete a course of PO Augmentin for L LE cellulitis. Orders not resulted at time of discharge: Pending orders 03/27/19 16:00 Culture,Blood [BC] Stat 03/31/19 08:00 Vancomycin,Trough Timed Date of Encounter: 03/30/19 Time of Encounter: 07:30 - Discharge Diagnosis (1) Cellulitis Priority: Primary Status: Acute Qualifiers: Site of cellulitis: extremity Site of cellulitis of extremity: lower extremity Laterality: left Qualified Code(s): L03.116 - Cellulitis of left lower limb (2) DVT (deep venous thrombosis) Priority: Secondary Status: Acute Qualifiers: DVT location: lower extremity Affected thrombotic vein of extremity: other lower extremity vein Chronicity: acute Laterality: left Qualified Code(s): I82.492 - Acute embolism and thrombosis of other specified deep vein of left lower extremity (3) Hypertension Priority: Secondary Status: Chronic Qualifiers: Hypertension type: essential hypertension Qualified Code(s): I10 - Essential (primary) hypertension (4) Diabetes Priority: Secondary Status: Chronic Qualifiers: Diabetes mellitus type: type 2 Diabetes mellitus [facility] insulin use: without [facility] use Diabetes mellitus complication status: with unspecified complications Qualified Code(s): E11.8 - Type 2 diabetes mellitus with unspecified complications (5) COPD (chronic obstructive pulmonary disease) Priority: Secondary Status: Chronic Qualifiers: COPD type: unspecified COPD Qualified Code(s): J44.9 - Chronic obstructive pulmonary disease, unspecified (6) Heart failure Priority: Secondary Status: Chronic Qualifiers: Heart failure type: unspecified Heart failure chronicity: chronic Qualified Code(s): I50.9 - Heart failure, unspecified (7) Morbid obesity with BMI of 45.0-49.9, adult Priority: Secondary Status: Chronic Hospital course: Ms. Felix is a 73 year old female with history of diabetes, hypertension, morbid obesity, who was admitted to LE cellulitis after failing PO Bactrim, Keflex, and Ciprofloxacin. Doppler scan showed L SFV DVT in addition. Clinically improved with IV abx and hep gtt and she was eventually transitioned to PO Eliquis with stable Hb. She will be discharged on a total of 7 days of PO Augmentin; starter pack for Eliquis was called in for L LE DVT as well. Discharge discussed with: patient, nurse, other (Pharmacist) - Time Spent with Patient Total time spent providing and/or coordinating discharge services: 32 mins - Discharge Medications Prescriptions: New Amoxicillin/Clavulanate [Augmentin] 875 mg PO BIDWM 4 Days #8 tablet Apixaban [Eliquis] 10 mg PO BID tablet Continued Albuterol Sulfate [Albuterol Inhaler] 1 - 2 puff IH Q4-6H PRN PRN Reason: Shortness Of Breath Nitroglycerin [Nitrostat] 0.4 mg SL Q5M PRN PRN Reason: Chest Pain Atorvastatin [Lipitor] 40 mg PO DAILY Isosorbide MONOnitrate (24 HR) [Imdur] 60 mg PO DAILY Glimepiride [Amaryl] 1.5 mg PO HS Losartan Potassium [Cozaar] 100 mg PO DAILY Glimepiride [Amaryl] 1.5 mg PO QAM Furosemide [Lasix] 80 mg PO QPM Aspirin 81 mg PO DAILY Vitamin D 2,000 unit PO DAILY Furosemide [Lasix] 120 mg PO QAM Lactobacillus Acidophilus [Acidophilus] 1 cap PO BID Mupirocin [Bactroban Oint] 1 appl TP TID Metoprolol [Lopressor] 12.5 mg PO BID Discontinued Ciprofloxacin HCl [Cipro] 500 mg PO BID Home Medications: Albuterol Sulfate [Albuterol Inhaler] 1 - 2 puff IH Q4-6H PRN 04/25/18 [History] Atorvastatin [Lipitor] 40 mg PO DAILY 04/25/18 [History] Furosemide [Lasix] 80 mg PO QPM 04/25/18 [History] Glimepiride [Amaryl] 1.5 mg PO HS 04/25/18 [History] Glimepiride [Amaryl] 1.5 mg PO QAM 04/25/18 [History] Isosorbide MONOnitrate (24 HR) [Imdur] 60 mg PO DAILY 04/25/18 [History] Losartan Potassium [Cozaar] 100 mg PO DAILY 04/25/18 [History] Nitroglycerin [Nitrostat] 0.4 mg SL Q5M PRN 04/25/18 [History] Aspirin 81 mg PO DAILY 03/28/19 [History] Furosemide [Lasix] 120 mg PO QAM 03/28/19 [History] Lactobacillus Acidophilus [Acidophilus] 1 cap PO BID 03/28/19 [History] Mupirocin [Bactroban Oint] 1 appl TP TID 03/28/19 [History] Vitamin D 2,000 unit PO DAILY 03/28/19 [History] Amoxicillin/Clavulanate [Augmentin] 875 mg PO BIDWM 4 Days #8 tablet 03/30/19 [Rx] Apixaban [Eliquis] 10 mg PO BID tablet 03/30/19 [Rx] Metoprolol [Lopressor] 12.5 mg PO BID 03/30/19 [History] Allergies/Adverse Reactions: Allergy/AdvReac Type Severity Reaction Status Date / Time No Known Allergies Allergy Verified 04/25/18 09:00 Date of admission: 03/27/19 19:34 Primary care physician: Jeff Maloney DO Consults: 03/29/19 12:16 Consult to Occupational Therapy [CONS] Routine Comment: Evaluate, develop and implement POC Reason for Consult: L LE DVT, obesity, deconditioning Does patient have active BEDREST order?: No Is patient medically & hemodynamically stable?: Yes Consult to Physical Therapy [CONS] Routine Comment: Evaluate, develop and implement POC Reason for Consult: L LE DVT, obesity, deconditioning Does patient have active BEDREST order?: No Is patient medically & hemodynamically stable?: Yes - Constitutional Vitals: Temp Pulse Resp BP Pulse Ox 98.4 F 77 18 151/81 93 03/30/19 09:00 03/30/19 09:00 03/30/19 09:00 03/30/19 09:00 03/30/19 09:00 Exam: General: Alert and oriented, not in acute distress. Obese female Cardiovascular:Normal S1 & S2, No JVD. Pulse regular. Lungs: clear to auscultation, no wheezes/rales Abdomen:Soft, non-tender, no rigidity. Extremities: redness and tenderness around the wound on L lower zayas anteriorly, improving from yesterday. No obvious fluctuance, no discharge appreciated. Neurological:Normal cognition and motor skills. Non-focal - Patient Status Disposition: Home, Self-Care Condition: Undetermined Functional capacity at discharge: uses cane/walker Overall status at discharge: patient is progressing back to baseline - Discharge Instructions Instructions: Apixaban (By mouth), Cellulitis (DC), Deep Venous Thrombosis (DC), Diabetes Mellitus Type 2 in Adults (DC) Follow Up With: Jeff Maloney DO [Primary Care Provider] - 04/03/19 10:30 am - Diet and Activity Activity: resume usual activities as tolerated Diet: diabetic diet, low salt diet
[2019-03-30 13:40] VITALS: BP 111/68
[2019-03-30] MEDS ORDERED: Aminoglycoside Consult 1 EACH MC ONE (14:11)
== END 2019-03-30 14:12 | disposition home or self-care (01) | DRG 603 ==
LOC: 3ANU 14:44 → EMEROOARM 14:44 → SUATTDRO 19:34 → 3ANU 20:17
PROVIDERS: ADMIT Internal Medicine Nephrology; ATTEND Internal Medicine